=== PATIENT | male | born 1995 | race Caucasian/White ===

== ENCOUNTER → 2020-05-07 12:29 | Outpatient (CLI) | payer MEDICAID | END | disposition home or self-care (01) | LOC: D.NM 12:29 | PROVIDERS: ATTEND Internal Medicine Gastroenterology | DX: R11.2 Nausea with vomiting, unspecified (principal) ==

== ENCOUNTER 2020-06-04 06:46 | Day surgery (SDC) | payer MEDICAID ==
[~2020-06-04] VITALS: Ht 188 cm; Wt 109.8 kg
--- NOTE | ~2020-06-04 | OP ---
PATIENT NAME: GAMA LÓPEZ MEDICAL RECORD: [id number] :97 LOCATION:D.OPS ADMISSION DATE: SURGEON: NADEEM ARREOLA MD DATE OF OPERATION: 06/04/2020 PREOPERATIVE DIAGNOSIS: Biliary dyskinesia. POSTOPERATIVE DIAGNOSIS: Biliary dyskinesia. PROCEDURE: Laparoscopic cholecystectomy. SURGEON: Nadeem Arreola MD REPORT OF PROCEDURE: The patient's abdomen was prepped and draped in sterile fashion. A cutdown was made on the superior aspect of the umbilicus, 0 Vicryls were placed in the fascia bilaterally and the fascia was incised with 15-blade. I then bluntly entered the peritoneal cavity and placed a 12-mm Radha port. Under direct visualization, a 5 mm trocar was placed in the epigastrium and 2 more 5-mm trocars were placed in the right subcostal region. The gallbladder was grasped and elevated. There was a lot of inflammatory adhesions and scar tissue present to this. This fatty tissue was teased down carefully with electrocautery and blunt dissection. We eventually were able to dissect out the cystic artery and cystic duct. The cystic artery had 2 branches and these were clipped proximally and distally and ligated then the cystic duct was dissected free and we had a critical view of safety. The cystic duct was clipped proximally and distally and ligated and then the gallbladder was taken off the liver bed using electrocautery. Any bleeding from the liver bed was treated with electrocautery. We irrigated out the right upper quadrant and assured there was no sign of any bleeding or bile leakage. At this point, the ports and insufflation were then removed and the gallbladder was taken out through the umbilicus. The umbilical fascia was closed with interrupted 0 Vicryls times 3. The wounds were then irrigated out with normal saline and infused with 10 mL of 0.25% Marcaine with epinephrine. The skin incisions were all closed with subcutaneous 5-0 Monocryl and dressed appropriately. COMPLICATIONS: None. CONDITION: Stable. ANESTHESIA: General endotracheal and local. BLOOD LOSS: Minimal. TRANSINT:[id number] Voice Confirmation ID: [id number] DOCUMENT ID: [id number] NADEEM ARREOLA MD CC: JANET AMAYA MD [id number] DICTATION DATE: 06/04/20 1013 SCALE AGENT: 06/04/20 1535 [facility] [address] [place] [address]
[2020-06-04 07:05] LABS: BASOPHILS 0.3 % (0-2); HEMATOCRIT 44.4 % (42.0-54.0); HEMOGLOBIN 14.9 g/dL (13.5-17.5); IMMATURE GRANULOCYTES 0.1 % (0-5); LYMPHOCYTES 34.1 % (15-50); MCH 28.4 pg (26.0-34.0); MCHC 33.6 g/dL (31.0-37.0); MCV 84.7 fL (80.0-100.0); MEAN PLATELET VOLUME 10.3 fL (7.4-10.4); MONOCYTES 9.6 % (2-11); NEUTROPHILS 53.9 % (40-80); PLATELET COUNT 281 10x3/uL (130-400); RBC 5.24 10x6/uL (4.20-6.10); RDW 12.7 % (11.5-14.5); WBC 7.5 10x3/uL (4.8-10.8)
[2020-06-04 07:10] LABS: CALC OSMOLALITY 282 mosm/kg (275-300); CALCIUM 8.9 mg/dL (8.5-10.1); CARBON DIOXIDE 32.2 mmol/L (21.0-32.0); CHLORIDE - SERUM 104 mmol/L (98-107); CREATININE - SERUM 1.2 mg/dL (0.6-1.3); GLUCOSE 96 mg/dL (74-106); POTASSIUM - SERUM 3.9 mmol/L (3.5-5.1); SODIUM 141 mmol/L (136-145); UREA NITROGEN 18 mg/dL (7-18); eGFR NON AFRICAN AMERICAN 80 mL/min (90-120)
[2020-06-04 08:10] VITALS: BP 115/69; Ht 188 cm; Wt 109.8 kg
[2020-06-04] MEDS ORDERED: ULTRAM50 MG PO (10:10)
--- NOTE | 2020-06-04 15:34 | NUR ---
1116 PT C/O PAIN OF 6 OUT OF 10 AND ASKING FOR PAIN MEDICATION 1240 PT STATES HIS PAIN LEVEL HAS DECREASED SLIGHTLY. UP AND WALKING IN ROOM AT THE MOMENT. IV DC'D AT 1212 AFTER PT VOIDED.
== END 2020-06-04 12:48 | disposition home or self-care (01) ==
LOC: D.OPS 06:46
PROVIDERS: ATTEND Surgery
DX: K82.8 Other specified diseases of gallbladder (principal)

== ENCOUNTER → 2020-11-22 11:07 | Outpatient (CLI) | payer MEDICAID ==
[2020-06-04 08:10] VITALS: BMI 31.1
[~2020-11-22 11:07] MED LIST: ULTRAM50 MG PO
== END | disposition home or self-care (01) ==
LOC: D.NM 11:07
PROVIDERS: ATTEND Internal Medicine Gastroenterology
DX: R11.2 Nausea with vomiting, unspecified (principal); R10.84 Generalized abdominal pain

== ENCOUNTER → 2020-12-03 14:41 | Outpatient (CLI) | payer MEDICAID ==
[2020-06-04 08:10] VITALS: BMI 31.1
[2020-12-03 15:49] LABS: AMYLASE - SERUM 71 U/L (25-115); LIPASE 85 U/L (73-393)
== END | disposition home or self-care (01) ==
LOC: D.LAB 14:41
PROVIDERS: ATTEND Internal Medicine Gastroenterology
DX: R11.2 Nausea with vomiting, unspecified (principal); R10.84 Generalized abdominal pain

== ENCOUNTER → 2021-02-21 08:40 | Outpatient (CLI) | payer BC ==
[2020-06-04 08:10] VITALS: BMI 31.1
== END | disposition home or self-care (01) ==
LOC: D.RAD 02-05 09:00
PROVIDERS: ATTEND Internal Medicine Gastroenterology
DX: R11.2 Nausea with vomiting, unspecified (principal); R10.817 Generalized abdominal tenderness